=== PATIENT | male | born 1965 | race Caucasian/White ===

== ENCOUNTER 2017-03-16 16:44 | Emergency (ER) | payer SELFPAY ==
[~2017-03-16] VITALS: Ht 180.3 cm; Wt 92.5 kg
[2017-03-16 20:24] VITALS: BP 182/109
== END 2017-03-16 20:24 | disposition home or self-care (01) ==
LOC: ED 16:44 → EDBD 16:44 → ED 20:24
DX: S60.811A Abrasion of right wrist, initial encounter (principal); M79.5 Residual foreign body in soft tissue; E11.9 Type 2 diabetes mellitus without complications; Z79.84 Long term (current) use of oral hypoglycemic drugs; W27.8XXA Contact with other nonpowered hand tool, initial encounter; Y93.89 Activity, other specified; Y99.8 Other external cause status; Y92.89 Other specified places as the place of occurrence of the external cause
CPT/HCPCS: 90715